=== PATIENT | male | born 1985 | race Caucasian/White ===

== ENCOUNTER 2024-07-17 23:15 | Observation (INO) | payer SELFPAY ==
[2024-07-17 19:29] VITALS: BP 153/94
[2024-07-17 19:30] VITALS: BP 153/94
[2024-07-17 19:51] LABS: % Basophils 0.7 % (0-2); % Eosinophils 1.4 % (0-6); % Immature Granulocytes 0.2 % (0-0.5); % Lymphocytes 18.4 % (20.5-51.1); % Monocytes 9.1 % (1.7-9.3); % Neutrophils 70.2 % (42.2-75.2); Absolute Basophils 0.1 10^3/uL (0-0.2); Absolute Eosinophils 0.2 10^3/uL (0-0.7); Absolute Lymphocytes 2.2 10^3/uL (1.2-3.4); Absolute Monocytes 1.1 10^3/uL (0.1-0.6); Absolute Neutrophils 8.5 10^3/uL (1.4-6.5); Hematocrit 42.6 % (39.0-52.0); Hemoglobin 14.8 g/dL (13.0-18.0); Mean Corp Hgb Conc. 34.7 g/dL (33.0-37.0); Mean Corpuscular Hgb 28.6 pg (27.0-31.0); Mean Corpuscular Volume 82.4 fL (80.0-94.0); Mean Platelet Volume 9.4 fL (7.4-10.4); Nucleated Red Blood Cells % 0 % (-); Platelet Count 413 10^3/uL (130-400); Red Blood Cell Count 5.17 10^6/uL (4.70-6.10); Red Cell Dist. Width 12.7 % (11.5-14.5); White Blood Cell Count 12.2 10^3/uL (4.8-10.8)
[2024-07-17 20:00] VITALS: BP 135/89
[2024-07-17 20:06] LABS: ALT (SGPT) 28 U/L (0-50); AST (SGOT) 23 U/L (17-59); Albumin 4.6 g/dl (3.5-5.0); Alkaline Phosphatase 73 U/L (38-126); Blood Urea Nitrogen 14 mg/dl (9-20); Calcium 9.6 mg/dl (8.4-10.2); Carbon Dioxide 26 mmol/L (22-30); Chloride 104 mmol/L (98-107); Estimated Creatinine Clearance > 125 ml/min; Glucose 87 mg/dl (70-99); Potassium 4.4 mmol/L (3.5-5.1); Sodium 142 mmol/L (135-145); Total Bilirubin 0.5 mg/dl (0.2-1.3); Total Protein 7.5 g/dl (6.3-8.2); eGFR > 60.00
[2024-07-17 21:00] VITALS: BP 144/95
[2024-07-17 21:12] LABS: INR 0.91; PT 12.5 Sec (11.4-14.6)
[2024-07-17 21:13] LABS: APTT 27.1 Sec (23.4-35.0)
[2024-07-17 22:00] VITALS: BP 129/90
--- NOTE | 2024-07-17 22:09 | ED.GENMED ---
History of Present Illness
General
Chief Complaint: Rectal Bleeding
Source: patient
Exam Limitations: none
Time Seen by Provider: 07/17/24 20:49
History of Present Illness
History of Present Illness:
39-year-old male complaining of bright red blood per rectum. Describing a cup. Has had intermittently in the past. No abdominal pain no other complaints. No workup in the past
Past History
Past History
ED Past Medical History: Other (GERD)
ED Past Surgical History: Other (Teeth extraction)
Review of Systems
Review of Systems
All Other Systems: Not applicable
Constitutional: Denies fever or chills
Respiratory: Reports no symptoms
Cardiac: Reports no symptoms
Phy Exam
Physical Exam
Physical Exam:
GENERAL: Alert and oriented in no apparent distress
EYE: Orbits normal.
NECK: Supple
CARDIAC: Regular rate and rhythm without any obvious murmurs.
LUNGS: Clear breath sounds,normal
ABDOMEN: Soft, without focal tenderness or distention. Rectal exam with no stool but test positive
NEUROLOGICAL: Alert and oriented , grossly non-focal
SKIN: Warm and dry, no rash or lesion, no discoloration, skin intact.
MUSCULOSKELETAL: No edema,no deformity.Good color
PSYCH: Normal and appropriate interaction.
Course
Orders/Labs/Results
Orders:
Orders
07/17/24 19:36
O2 Therapy [RESP] Urgent
Titrate/Wean O2 to maintain O2 sat greater than (%): 93
Special Instructions: MAINTAIN CONTINOUS O2 SATS > OR = 93%
07/17/24 19:38
Type+Screen Urgent
Complete Blood Count/With Diff Urgent
Comprehensive Metabolic Panel Urgent
PTT Urgent
Prothrombin Time Urgent
07/17/24 19:56
ABO2 Urgent
PushToTestK Wristband Number:
Associate notified that ABO2 has been ordered: [id number]
Date: 07/17/24
Time: 19:53
Job Site Superintendent ID: [id number]
07/17/24 22:29
Admit/Transfer Patient As Directed
Co-Sign Provider:
Level of Care: Observation services
Assign to:: Medical/Surgical
Physician / Group: [facility]
Diagnosis: Rectal Bleeding
Code Status As Directed
Resuscitation Status: Full Code
PRN Pain Medication Management As Directed
May give lesser potent ordered pain med per pt: Yes
preference::
Protocol:: Medication orders for pain may be administered in a
manner that supports deferring to patient preference
when the pt is:
- Requesting an ordered lesser potent pain medication.
Least to most potent pain medications are defined
as: acetaminophen < NSAID < tramadol < opioids
(morphine, oxycodone, hydromorphone).
- Requesting a lesser dose of the same medication IF
ORDERED.
- Requesting a less intrusive route of administration
if both routes are prescribed by the provider (PO <
IV).
Abnormal Lab Results
07/17/24
19:38
WBC 12.2 H 10^3/uL
(4.8-10.8)
Plt Count 413 H 10^3/uL
(130-400)
Absolute Neuts (auto) 8.5 H 10^3/uL
(1.4-6.5)
Absolute Monos (auto) 1.1 H 10^3/uL
(0.1-0.6)
Lymphocytes % 18.4 L %
(20.5-51.1)
07/17/24 19:38
07/17/24 19:38
Vital Signs
Initial and Last Documented VS:
Initial Vital Signs
Temp Pulse Resp BP Pulse Ox
98.5 F 78 18 153/94 100
07/17/24 19:29 07/17/24 19:29 07/17/24 19:29 07/17/24 19:29 07/17/24 19:29
Last Documented Vital Signs
Temp Pulse Resp BP Pulse Ox
98.5 F 70 18 144/95 97
07/17/24 19:29 07/17/24 21:15 07/17/24 21:15 07/17/24 21:00 07/17/24 21:15
MDM/Problems Addressed
Differential Diagnosis Includes:
Patient medically stable. However describing significant episode of bright red blood per rectum. Warrants further inpatient workup
*Pulse Oximetry
Patient hypoxic: no
*Critical Care Note
Total Time (30-74mins, 75-104mins- exclusive of procedures): Not Applicable
ED Attending Note
-
Portions of this chart may have been created with voice recognition software.� Occasional wrong word or��sound alike� substitutions may have occurred due to the inherent limitations of voice recognition software.
Discharge Plan
Departure
Patient Disposition: Admit
Date of Disposition: 07/17/24
Time of Disposition: 22:11
Presentation/result/management discussed w/ accepting MD/DO: Hospitalist
Discharge Problem:
Acute lower GI bleed
Prescriptions:
No Action
No Current Medications
0
Referrals:
[facility] [Family Provider] -
Interventions
Interventions:
*Risk Screen - Suicide Last Done: 07/17/24 19:29
*General Assessment Last Done: 07/17/24 19:29
*Neglect/Abuse Screening Last Done: 07/17/24 19:29
*ED- Fall Risk Assessment Last Done: 07/17/24 19:29
*ED COVID-19 Vaccine History Last Done: 07/17/24 19:29
IG-Vthhsl-Khlsbavlkl Assessment Last Done: 07/17/24 19:27
ED- Cardiac Assessment Last Done: 07/17/24 19:27
ED- Pulmonary Assessment Last Done: 07/17/24 19:27
Discharge Date and Time
Print Language: MICRONESIAN
--- NOTE | 2024-07-17 22:30 | HPS.HSE ---
Family Physician
-
Family Physician: Facility [facility]
Chief Complaint
-
Rectal Bleeding
History of Present Illness
Patient is a 39y M with no known PMH who presents to ED complaining of bright red blood per rectum. Patient reports a long history of intermittent BRBPR. This typically amounts to about 1 cup of BRB mixed with stool and typically occurs about
once per week on average. This has been so for months / > 1 year. He has never sought evaluation of this in the past. He reports some L flank / lower back discomfort and abdominal bloating which seems to precede these episodes of bleeding.
He denies any lightheadedness, dizziness, abdominal pain, N/V, etc.
Medical History
Past Medical History
Past Medical History: Reports None
Past Surgical History: Reports None
Social History
Tobacco: Smoker (Current every day smoker.)
Alcohol: None
Drug: Other (Meth use (inhalation). No IVDA.)
Living: Detention
Family History
Family History: Other (Father: CHF)
Allergies / Home Medications
Allergies reflects when Allergies were last updated in [facility].
Home Medications with original date entered in [employer]
Allergy/Medication List:
Allergies
Allergy/AdvReac Type Severity Reaction Status Date / Time
No Known Allergies Allergy Unverified 07/17/24 19:28
Home Medications
No Meds [No Current Medications] 07/17/24
Review of Systems
-
History Source: Patient
A 12 point ROS was completed and negative except as noted: Yes
Constitutional: Denies Fever or Chills
Respiratory: Denies Cough or Trouble Breathing
Cardiac: Denies Chest Pain or Palpitations
Abdomen/GI: Reports Bloody Stools; Denies Abdominal Pain, Nausea, Vomiting or Diarrhea
: Reports Flank Pain; Denies Dysuria or Frequency
Neurological: Denies Dizzy or Headache
Physical Exam
Vital Signs
Vital Signs
Temp Pulse Resp BP Pulse Ox
98.5 F 70 18 144/95 97
07/17/24 19:29 07/17/24 21:15 07/17/24 21:15 07/17/24 21:00 07/17/24 21:15
Physical Exam
General: Other (39y M in no acute distress.)
HEENT: Moist mucous membranes
Respiratory: Clear; No Wheezes, Rales or Rhonchi
Cardiac: S1/S2 and Regular Rhythm; No Murmur
GI: Soft, Non Tender, Non Distended and Normal Bowel Sounds
Musculoskeletal: No Clubbing, No Cyanosis and No Edema
Neuro: AO x 3
Laboratory Results
-
07/17/24 19:38
07/17/24 19:38
Laboratory Results
PT 12.5 Sec (11.4-14.6) 07/17/24 19:38
INR 0.91 07/17/24 19:38
APTT 27.1 Sec (23.4-35.0) 07/17/24 19:38
Total Bilirubin 0.5 mg/dl (0.2-1.3) 07/17/24 19:38
AST 23 U/L (17-59) 07/17/24 19:38
ALT 28 U/L (0-50) 07/17/24 19:38
Alkaline Phosphatase 73 U/L (38-126) 07/17/24 19:38
Impression/Plan
-
A/P: Patient is a 39y M with no significant PMH who presents to ED for evaluation of BRBPR.
BRBPR - Acute on Chronic
- Observe overnight for further evaluation and treatment.
- Months of similar symptoms that warrant further evaluation.
- Follow H&H for any changes - Hgb stable at present.
- GI consult for additional recommendations / possible endoscopic examination.
- Follow for any recurrent BRBPR.
DVT prophylaxis: SCDs
Code Status: Full
[2024-07-17 23:00] VITALS: BP 132/83
[2024-07-18] VITALS (11 sets, daily range): BP systolic 116–135; BP diastolic 74–105
[2024-07-18 01:44] LABS: Hematocrit 38.5 % (39.0-52.0); Hemoglobin 13.8 g/dL (13.0-18.0)
[2024-07-18 07:04] LABS: Blood Urea Nitrogen 15 mg/dl (9-20); Calcium 9.2 mg/dl (8.4-10.2); Carbon Dioxide 26 mmol/L (22-30); Chloride 106 mmol/L (98-107); Estimated Creatinine Clearance > 125 ml/min; Glucose 99 mg/dl (70-99); Potassium 4.5 mmol/L (3.5-5.1); Sodium 140 mmol/L (135-145); eGFR > 60.00
--- NOTE | 2024-07-18 07:18 | W.PN.HOSP.TC ---
Today's Communication/Plan
-
discharge
Assessment / Plan
Assessment / Plan
Physical Exam
General: no acute distress, appears comfortable at this time.
HEENT: Moist mucous membranes
Respiratory: Clear; No Wheezes, Rales or Rhonchi
Cardiac: S1/S2 and Regular Rhythm; No Murmur
GI: Soft, Non Tender, Non Distended and Normal Bowel Sounds
Musculoskeletal: No Clubbing, No Cyanosis and No Edema
Neuro: AO x 3 conversant coherent
A/P: Patient is a 39y M with no significant PMH who presents to ED for evaluation of BRBPR.
BRBPR - Acute on Chronic
- Observation overnight
- Months of similar symptoms that warrant further evaluation.
- H&H stable, no significant anemia noted during stay
- GI eval appreciated outpt colonoscopy Saturday arranged
DVT prophylaxis: SCDs
Code Status: Full
Medically stable for discharge with outpatient follow up recommendations.
Total Time Preparing Discharge ___40____ minutes including examination of the patient, summary of the hospital stay, instructions for continuing care to all relevant caregivers; and preparation of discharge records, prescriptions, and referral
forms if necessary.
Anticipated Discharge: Today
Subjective/Interval History
-
Date of Service: July 18, 2024
No acute distress resting comfortably in bed. Denies pain or new acute issues.
Objective Data
-
Labs:
Laboratory Results
07/17/24 07/18/24 07/18/24
19:38 01:26 06:20
WBC 12.2 H
Hgb 14.8 13.8
Hct 42.6 38.5 L
Plt Count 413 H
PT 12.5
INR 0.91
APTT 27.1
Sodium 142 140
Potassium 4.4 4.5
Chloride 104 106
Carbon Dioxide 26 26
BUN 14 15
Creatinine 0.9 0.8
Glucose 87 99
Calcium 9.6 9.2
Total Bilirubin 0.5
AST 23
ALT 28
Alkaline Phosphatase 73
07/18/24 07/18/24
08:40 16:40
WBC
Hgb Pending Pending
Hct Pending Pending
Plt Count
PT
INR
APTT
Sodium
Potassium
Chloride
Carbon Dioxide
BUN
Creatinine
Glucose
Calcium
Total Bilirubin
AST
ALT
Alkaline Phosphatase
Vital Signs:
Vital Signs
Temp Pulse Resp BP Pulse Ox
98.5 F 66 13 135/86 96
07/17/24 19:29 07/18/24 00:30 07/18/24 00:30 07/18/24 00:00 07/18/24 00:00
[2024-07-18] MEDS: PROTONIX IV 40 MG IV ×2 (07:38→07:43)
[2024-07-18] MEDS: NSS (PRESERVATIVE FREE) 10 ML IV (07:43)
[2024-07-18 07:53] LABS: Hematocrit 40.5 % (39.0-52.0)
--- NOTE | 2024-07-18 08:33 | W.PN.GI.CBS2 ---
Today's Communication / Plan
-
-- Stool studies, outpatient colonoscopy on Saturday okay for discharge and outpatient follow-up
Assessment / Plan
-
Patient is a 39-year-old male [facility] with intermittent roughly 1 cup of bright red blood which has been ongoing for over a year who is hemodynamically stable with a normal hemoglobin and coagulation studies
# Bright red blood per rectum -patient hemodynamically stable with no drop in hemoglobin
--- Etiology hemorrhoids versus proctitis versus inflammatory bowel disease
-- Check fecal calprotectin, and stool studies if he has any
-- He is very stable and could proceed with outpatient workup
-- The found him an appointment for an outpatient colonoscopy on 07/22/2024 for [facility] with Mira[employer] Gatorade prep with Dr. Covarrubias
Subjective
Subjective
Date of Service: July 18, 2024
Patient is a 39-year-old male currently in prison since mid June, supposed to get out mid-July who is here in the emergency room with over a year of intermittent bright red blood. He denies any significant abdominal pain but does feel gassy and then
can have bright red blood without bowel movements or mixed with formed bowel movements. Denies any significant mucus. He has never been seen by a doctor for this. He does feel like he has hemorrhoids at times. In between these episodes he has
formed brown bowel movements. He is somewhat embarrassed telling me his history in front of the assisted guards.
Denies any family history of inflammatory bowel disease or colon cancer. He is not on any medications.
In the emergency room he has a mild leukocytosis of 12,000, platelets of 413, hemoglobin 14 this morning and last night 13.8, normal coagulation studies, BUN normal at 15, creatinine 0.8, normal LFTs. No imaging was done. No stool studies
collected with last episode around 6 PM yesterday. He states sometimes he can have a couple in a day. He is not anemic.
He also has significant reflux which he states can even wake him from sleep and would take intermittent Tums. He is a chronic smoker. Since being in prison they have been giving him Prilosec which states resolved his reflux. Denies any dysphagia,
chronic nausea or vomiting. He has had some weight gain since being in prison.
He is a smoker, occasional methamphetamines. Denies any alcohol use
Objective
Data Reviewed
Laboratory Data:
Laboratory Results
07/18/24 06:20
Laboratory Results
PT 12.5 Sec (11.4-14.6) 07/17/24 19:38
INR 0.91 07/17/24 19:38
APTT 27.1 Sec (23.4-35.0) 07/17/24 19:38
Total Bilirubin 0.5 mg/dl (0.2-1.3) 07/17/24 19:38
AST 23 U/L (17-59) 07/17/24 19:38
ALT 28 U/L (0-50) 07/17/24 19:38
Alkaline Phosphatase 73 U/L (38-126) 07/17/24 19:38
Vital Signs and I&O:
Vital Signs
Temp Pulse Resp BP Pulse Ox
98.5 F 66 13 135/86 96
07/17/24 19:29 07/18/24 00:30 07/18/24 00:30 07/18/24 00:00 07/18/24 00:00
Physical Exam
Physical Exam
HEENT: Anicteric
Cardiology: Normal Sinus Rhythm
Pulmonary: Clear
GI: Soft, Non Distended and Non Tender
Rectal: Other (Significant anal spasm, small external hemorrhoids, no stool or blood but I did not do a good rectal exam since it was very uncomfortable for him. Not painful just uncomfortable. No evidence of fissure)
Extremities: No Edema
Neuro: Non Focal
--- NOTE | 2024-07-18 10:07 | W.DCSUMMARY ---
Discharge Summary
Discharge Data
Date of Admission: 07/17/24
Date of Discharge: 07/18/24
-
Pending Results: No
Discharge Plan
-
Patient Disposition: Longterm
Discharge Diagnosis/Procedures: Bright Red Blood Per Rectum unclear etiology
Condition: Fair
Diet: Other diet
Additional Diets: Ok for regular diet for now. Tomorrow Wednesday 07/19 Clear Liquid diet then after midnight no food or drink for Scope Thursday 07/20.
Activity: As tolerated
Driving Restrictions: As prior to admission
Bathing Restrictions: None
Activity Restrictions/Additional Instructions:
Please keep your appointment with GI for outpatient Colonoscopy 07/20/24Saturday 01:30 PM
Referrals:
[facility],Fac[facility] [Family Provider] -
Lupillo Covarrubias MD [Active] - 07/20/24 1:30 pm
Prescriptions:
No Action
No Current Medications
0
Discharge Orders:
Discharge Patient (As Directed); Ordered 07/18/24
Ordered By: Shaun Almendarez
Discharge Date and Time
Print Language: [place] KORE[place]
--- NOTE | 2024-07-18 12:53 | CM ---
Pt from [facility]
Plan for dc back today
Discharge Disposition- return to [facility]
== END 2024-07-18 10:15 ==
LOC: ED 23:15
PROVIDERS: ADMITTING PHYSICIAN Hospitalist; ATTENDING PHYSICIAN Internal Medicine; EMERGENCY PHYSICIAN Emergency Medicine
DX: K92.2 Gastrointestinal hemorrhage, unspecified (principal); K21.9 Gastro-esophageal reflux disease without esophagitis; R14.0 Abdominal distension (gaseous); D72.829 Elevated white blood cell count, unspecified; M54.50 Low back pain, unspecified; F17.200 Nicotine dependence, unspecified, uncomplicated; Z82.49 Family history of ischemic heart disease and other diseases of the circulatory system
CPT/HCPCS: 80048; 80053; 85014; 85018; 85025; 85610; 85730; 86850; 86900; 86901; 99284; G0378

== ENCOUNTER 2024-07-31 06:25 | Day surgery (SDC) | payer OTHER, SELFPAY | END 2024-07-31 15:48 | disposition home or self-care (01) | LOC: GI 06:25 | PROVIDERS: ATTENDING PHYSICIAN Internal Medicine Gastroenterology | DX: K62.5 Hemorrhage of anus and rectum (principal); K64.8 Other hemorrhoids; Q43.8 Other specified congenital malformations of intestine; K63.5 Polyp of colon | CPT/HCPCS: 45380; 88305 ==